=== PATIENT | female | born 1990 | race African-American/Black ===

== ENCOUNTER 2019-01-28 08:58 | Emergency (ER) | payer MEDICARE ==
[~2019-01-28] VITALS: Ht 162.6 cm; Wt 108.9 kg
[2019-01-28] MEDS ORDERED: CEFTRIAXONE SOD 500 MG VIAL IM ONE (09:30)
[2019-01-28] MEDS ORDERED: AZITHROMYCIN 250 MG TAB PO ONE (09:30)
== END 2019-01-28 09:38 | disposition home or self-care (01) ==
LOC: FSED 08:58
DX: N30.00 Acute cystitis without hematuria (principal)
CPT/HCPCS: 81003; 99283; J0696

== ENCOUNTER 2019-02-17 08:57 | Emergency (ER) | payer MEDICARE, OTHER ==
[~2019-02-17] VITALS: Ht 162.6 cm; Wt 108.9 kg
== END 2019-02-17 09:56 | disposition left against medical advice (07) ==
LOC: FSED 08:57
DX: N76.1 Subacute and chronic vaginitis (principal)

== ENCOUNTER 2021-09-28 09:09 | Emergency (ER) | payer MEDICARE, OTHER ==
[~2021-09-28] VITALS: Ht 165.1 cm; Wt 97.5 kg
[2021-09-28] MEDS ORDERED: CLEOCIN100 MG/SUP VG (09:40)
[2021-09-28] MEDS ORDERED: AZITHROMYCIN500 MG PO (09:40)
[2021-09-28] MEDS ORDERED: CEFTRIAXONE 1 GM VIAL IM ONE (09:45)
[2021-09-28] MEDS ORDERED: CEFTRIAXONE 1 GM VIAL ONE (09:51)
== END 2021-09-28 10:17 | disposition home or self-care (01) ==
LOC: FSED 09:25
DX: O98.211 Gonorrhea complicating pregnancy, first trimester (principal); O23.591 Infection of other part of genital tract in pregnancy, first trimester; B96.89 Other specified bacterial agents as the cause of diseases classified elsewhere
CPT/HCPCS: 96372; 99282; J0696

== ENCOUNTER 2023-07-21 13:09 | Emergency (ER) | payer MEDICARE, OTHER ==
[~2023-07-21] VITALS: Ht 162.6 cm; Wt 95.3 kg
[~2023-07-21 13:09] MED LIST: AZITHROMYCIN500 MG PO; CLEOCIN100 MG/SUP VG; DOXYCYCLINE MO100 MG PO
[2023-07-21 13:15] VITALS: O2SAT 100
[2023-07-22] MEDS ORDERED: ZITHROMAX250 MG PO (09:41)
[2023-07-22] MEDS ORDERED: BROMFED DM COU118 ML PO (09:42)
[2023-07-22] MEDS ORDERED: MUPIROCIN22 GM TOP (09:45)
== END 2023-07-21 14:29 | disposition short-term general hospital (02) ==
LOC: FSED 13:12
DX: R05.9 Cough, unspecified (principal)
CPT/HCPCS: 0223U; 83518; 87400; 99282

== ENCOUNTER 2023-07-22 08:53 | Emergency (ER) | payer MEDICARE, OTHER ==
[~2023-07-22] VITALS: Ht 162.6 cm; Wt 95.3 kg
[2023-07-22 09:21] VITALS: O2SAT 98
[2023-07-22] MEDS ORDERED: ZITHROMAX250 MG PO (09:41)
[2023-07-22] MEDS ORDERED: BROMFED DM COU118 ML PO (09:42)
[2023-07-22] MEDS ORDERED: MUPIROCIN22 GM TOP (09:45)
== END 2023-07-22 09:59 | disposition home or self-care (01) ==
LOC: FSED 09:09
DX: R05.9 Cough, unspecified (principal); J06.9 Acute upper respiratory infection, unspecified; J45.909 Unspecified asthma, uncomplicated; E66.9 Obesity, unspecified; Z20.822 Contact with and (suspected) exposure to COVID-19
CPT/HCPCS: 0223U; 83518; 87400; 99282

== ENCOUNTER 2023-10-15 08:01 | Emergency (ER) | payer MEDICARE, OTHER ==
[~2023-10-15] VITALS: Ht 165.1 cm; Wt 96.6 kg
[~2023-10-15 08:01] MED LIST changes: +BROMFED DM COU118 ML PO; +IBUPROFEN200 MG PO; +KETOROLAC TROME10 MG PO; +MUPIROCIN22 GM TOP; +TAMIFLU75 MG PO; +TYLENOL325 MG PO; +ZITHROMAX250 MG PO
[2023-10-15 08:05] VITALS: O2SAT 100
[2023-10-15] MEDS ORDERED: SODIUM CHLORIDE 0.9% 1000ML 1,000 ML IV STA (08:08)
[2023-10-15] MEDS ORDERED: ONDANSETRON HCL INJ 2MG/ML 2ML 2 MG/ML VIAL IV PRN (08:15)
[2023-10-15 08:29] LABS: BASOPHILS # (AUTO) 0.1 (0.0-0.1); BASOPHILS % 0.9 % (0.0-1.0); EOSINOPHILS # (AUTO) 0.1 (0.0-0.4); EOSINOPHILS % 2.2 % (0.0-6.0); HEMATOCRIT 42.6 % (34.2-44.1); HEMOGLOBIN 13.4 g/dL (12.0-16.0); LYMPHOCYTES # (AUTO) 2.3 (1.0-3.2); LYMPHOCYTES % 41.6 % (18.0-39.1); MEAN CORPUSCULAR HEMOGLOBIN 30.9 pg (28-32); MEAN CORPUSCULAR HGB CONC 31.5 g/dL (31-35); MEAN CORPUSCULAR VOLUME 98.2 fL (81-99); MONOCYTES # (AUTO) 0.5 (0.2-0.8); MONOCYTES % 8.5 % (4.4-11.3); NEUTROPHILS # (AUTO) 2.6 (2.1-6.9); NEUTROPHILS % 46.6 % (38.7-80.0); PLATELET COUNT 257 x10e3/uL (140-360); RED BLOOD COUNT 4.34 x10e6/uL (3.6-5.1); RED CELL DISTRIBUTION WIDTH 12.8 % (11.7-14.4)
[2023-10-15] MEDS ORDERED: DICYCLOMINE HCL 20 MG/2 ML VIAL IM ONE (08:30)
[2023-10-15 09:13] LABS: ALBUMIN 3.6 g/dL (3.5-5.0); ALBUMIN/GLOBULIN RATIO 0.9 (0.8-2.0); ANION GAP 13.8 mmol/L (8-16); BILIRUBIN,TOTAL 0.3 mg/dL (0.2-1.2); CALCIUM 9.1 mg/dL (8.4-10.2); CREATININE, SERUM 0.88 mg/dL (0.57-1.11); POTASSIUM 3.8 mmol/L (3.5-5.1); TOTAL PROTEIN 7.5 g/dL (6.5-8.1)
[2023-10-15] MEDS ORDERED: IOPAMIDOL 370 MG/ML 100 ML INFUS..BTL INJ ONE (09:35)
[2023-10-15 09:53] LABS: BILIRUBIN,URINE NEGATIVE (NEGATIVE); CLARITY,URINE SL CLOUDY (CLEAR); COLOR,URINE YELLOW (YELLOW); GLUCOSE, URINE NEGATIVE (NEGATIVE); KETONES,URINE NEGATIVE (NEGATIVE); LEUKOCYTE ESTERASE ,URINE NEGATIVE (NEGATIVE); NITRITE,URINE NEGATIVE (NEGATIVE); PH,URINE 5.5 (5 - 7); PROTEIN,URINE DIPSTICK NEGATIVE (NEGATIVE); URINE UROBILINOGEN 0.2 mg/dL (0.2 - 1)
[2023-10-15 10:04] LABS: BACTERIA,URINE MODERATE /HPF; EPITHELIAL CELLS,URINE MODERATE /LPF; WBC,URINE (MAN) 0-5 /HPF (0-5)
[2023-10-15] MEDS ORDERED: PANTOPRAZOLE SO40 MG PO (10:16)
[2023-10-15] MEDS ORDERED: DICYCLOMINE HCL20 MG PO (10:17)
== END 2023-10-15 10:50 | disposition home or self-care (01) ==
LOC: ER 08:10
DX: R10.11 Right upper quadrant pain (principal); E66.9 Obesity, unspecified
CPT/HCPCS: 36415; 74177; 80053; 81001; 83690; 84702; 85025; 99284; C9113; J0500; J7030; Q9967

== ENCOUNTER 2024-03-30 09:42 | Emergency (ER) | payer MEDICARE ==
[~2024-03-30] VITALS: Ht 162.6 cm; Wt 93.9 kg
[~2024-03-30 09:42] MED LIST changes: +BACTRIM DS TAB1 EACH PO; +DICYCLOMINE HCL20 MG PO; +HYDROXYZINE HCL25 MG PO; +NYSTATIN-TRIAMC15 GM TOP; +PANTOPRAZOLE SO40 MG PO
[2024-03-30 10:10] VITALS: PULSE 86; RESP 18; TEMP 97.3; O2SAT 100
== END 2024-03-30 11:00 | disposition home or self-care (01) ==
LOC: ER 09:50
DX: R07.9 Chest pain, unspecified (principal); M79.10 Myalgia, unspecified site; E66.9 Obesity, unspecified; Z68.35 Body mass index [BMI] 35.0-35.9, adult
CPT/HCPCS: 71046; 99284

== ENCOUNTER 2024-06-06 08:31 | Emergency (ER) | payer MEDICARE ==
[~2024-06-06] VITALS: Ht 162.6 cm; Wt 93.9 kg
[2024-06-06 08:40] VITALS: PULSE 77; RESP 18; TEMP 98.3
[2024-06-06 09:49] VITALS: BP 129/72; PULSE 74; RESP 18; TEMP 98.3; O2SAT 99
== END 2024-06-06 09:34 | disposition home or self-care (01) ==
LOC: FSED 08:40
DX: R05.9 Cough, unspecified (principal); J06.9 Acute upper respiratory infection, unspecified; E66.9 Obesity, unspecified; Z11.52 Encounter for screening for COVID-19
CPT/HCPCS: 0223U; 83518; 87400; 99284